=== PATIENT | male | born 1990 | race Caucasian/White ===

== ENCOUNTER 2018-01-02 12:59 | Inpatient (IN) | payer SELFPAY ==
[2018-01-02 14:25] VITALS: BMI 23.6
--- NOTE | 2018-01-02 15:36 | C.PDOC ---
History Of Present Illness 27-year-old male, PMHx includes substance abuse, presents to the emergency department with complaint suicidal ideation. Patient states he was seen by a doctor last week, who told him that he has a "problem with his liver, and may have cancer." Patient states that five days ago, he left his home and broke up with his girlfriend; Patient has been living on the streets. Last night, patient states he overdosed and tried to kill himself, but his friend who was with him, woke patient up with two doses of Narcan. Denies HI. Patient states he wants to kill himself, doesn't want to live anymore. Time Seen by Provider: 01/02/18 15:01 Chief Complaint (Nursing): Psychiatric Evaluation History Per: Patient History/Exam Limitations: no limitations Past Medical History Reviewed: Historical Data, Nursing Documentation, Vital Signs Vital Signs: Last Vital Signs Temp 98.4 F 01/02/18 23:38 Pulse 73 01/02/18 23:38 Resp 16 01/02/18 23:38 BP 111/73 01/02/18 23:38 Pulse Ox 98 01/02/18 23:38 - Medical History PMH: Anxiety, Bipolar Disorder, Depression Family History: States: No Known Family Hx - Social History Hx Alcohol Use: Yes Hx Substance Use: Yes - Immunization History Hx Tetanus Toxoid Vaccination: No Hx Influenza Vaccination: No Hx Pneumococcal Vaccination: No Review Of Systems Constitutional: Negative for: Fever Cardiovascular: Negative for: Chest Pain, Palpitations Respiratory: Negative for: Shortness of Breath Gastrointestinal: Negative for: Nausea, Vomiting, Abdominal Pain Psych: Positive for: Suicidal ideation Physical Exam - Physical Exam Appears: Non-toxic, No Acute Distress Skin: Warm, Dry, No Rash, No Jaundice Head: Normacephalic Neck: Normal ROM Cardiovascular: Rhythm Regular, No Murmur Respiratory: Normal Breath Sounds, No Accessory Muscle Use Extremity: Normal ROM, Capillary Refill (<2 seconds), No Deformity, No Swelling Neurological/Psych: Oriented x3, Normal Speech, Other (Calm and cooperative. 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 He remains quiet and cooperative in ED under 1:1 supervision. Disposition - Disposition Disposition Time: 00:29 Condition: STABLE - Clinical Impression Clinical Impression: Moderate major depression, single episode, Suicide attempt - Scribe Statement The provider has reviewed the documentation as recorded by the Scribe (Penny Donahue) All medical record entries made by the Scribe were at my direction and personally dictated by me. I have reviewed the chart and agree that the record accurately reflects my personal performance of the history, physical exam, medical decision making, and the department course for this patient. I have also personally directed, reviewed, and agree with the discharge instructions and disposition. Physician Patient Turnover Patient Signed Over To: Lucia Harper Handoff Comments: Pending [facility] screening
[2018-01-02 16:12] LABS: BASO % 0.2 % (0.0-2.0); EOS % 0.6 % (0.0-4.0); HEMOGLOBIN 13.9 g/dL (12.0-18.0); LYMPH # 3.4 K/uL (1.0-4.3); LYMPH % 42.9 % (20.0-40.0); MEAN CELL VOLUME 77.6 fL (80.0-94.0); MEAN CORPUSCULAR HEMOGLOBIN 27.8 pg (27.0-31.0); MEAN CORPUSCULAR HGB CONC 35.8 g/dL (33.0-37.0); MEAN PLATELET VOLUME 8.6 fL (7.2-11.7); MONO # 0.5 K/uL (0.0-0.8); MONO % 6.2 % (0.0-10.0); NEUT # 3.9 K/uL (1.8-7.0); NEUT % 50.1 % (50.0-75.0); NRBC % 0.1 % (0.0-2.0); RED CELL DISTRIBUTION WIDTH 14.5 % (11.5-14.5); WHITE BLOOD COUNT 7.8 K/uL (4.8-10.8)
[2018-01-02 16:20] LABS: ALB/GLOB RATIO 1.3 (1.0-2.1); ALBUMIN 4.2 g/dL (3.5-5.0); ALT/SGPT 77 U/L (21-72); AST/SGOT 48 U/L (17-59); BLOOD UREA NITROGEN 11 mg/dL (9-20); GFR AFRICAN-AMERICAN > 60; GFR NON-AFRICAN AMERICAN > 60
[2018-01-02 16:27] LABS: SQUAMOUS EPITHIAL < 1 /hpf (0-5); URINE BACTERIA RARE (<OCC); URINE BILIRUBIN NEGATIVE (NEGATIVE); URINE BLOOD NEGATIVE (NEGATIVE); URINE CLARITY Clear (Clear); URINE COLOR Yellow (YELLOW); URINE GLUCOSE (UA) NORMAL (Normal); URINE LEUKOCYTE ESTERASE NEG Leu/uL (Negative); URINE NITRATE NEGATIVE (NEGATIVE); URINE PROTEIN NEGATIVE (NEGATIVE)
[2018-01-02 16:48] LABS: BARBITURATES, UR NEGATIVE (NEGATIVE); PHENCYCLIDINE, UR NEGATIVE (NEGATIVE)
[2018-01-02 16:50] LABS: OPIATES, UR POSITIVE (NEGATIVE)
[2018-01-02 16:55] LABS: BENZODIAZEPINES, UR NEGATIVE (NEGATIVE)
--- NOTE | 2018-01-03 09:01 | RAD ---
Chest x-ray single frontal view History: Psychiatric evaluation. Comparison: None available. Findings: No focal infiltrate or effusion. Heart size within normal limits. Impression: No focal infiltrate or effusion.
[2018-01-03] MEDS ORDERED: Aluminum Hydroxide/Magnesium Hydroxide Susp (30 mL) PO PRN (09:59)
--- NOTE | 2018-01-03 13:20 | PCM.PSYCH ---
Initial Psychiatric Evaluation - Initial Psychiatric Evaluation Type of Admission: Voluntary Legal Status: Capacity History of Present Illness and Precipitating Events: Pt is a 27 year old male presenting to the ED due to SI with plan. Pt states he was brought to the ED after he attempted to end his life last night via overdose on heroin. Pt states a friend found him "black-out" and brought him to the hospital (today). Pt reports that he used a few grams of heroin intravenously last night in an attempt to kill himself and consumed about one fifth of vodka. Pt reports daily use of heroin and alcohol. but reports a period of soberity for 14 months. Pt reports feelings of guilt and hopelessness , adding that he was recently diagnosed with a liver disease, Hepatitis C. Pt states that his depression has been ongoing and states that he has a history of Bipolar, Depression and Anxiety, but has not been compliant with medications. Pt states he has past attempts via overdose. Pt reports he is not in communication with his family. Pt reports he is living with his girlfriend however after she learned of his disease she broke up with him because she does not want to contract it. 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 Pt reports feeling like a failure, advoiding family ( NOTE: pt refused to provide contact information for family for collateral contact. Pt denies legal issues. Pt reports his highest level of education is [employer]. Pt is alert and oriented x4. pt appears tearful and depressed. Pt eye contact is poor and his speech is low. Pt noted with swollen hand which he reports is due to IV use. Pt is poor historian on events and details. Current Medications: Active Medications Generic Name Dose Route Start Last Admin Trade Name Freq PRN Reason Stop Dose Admin Al Hydrox/Mg Hydrox/Simethicone 30 ml 01/03/18 09:59 Maalox 30 Ml PO TID PRN Indigestion / Heartburn Clonidine HCl 0.1 mg 01/03/18 09:59 Catapres PO Q8 PRN COWS Score More or Equal to 5 Loperamide HCl 2 mg 01/03/18 09:59 Imodium PO Q8 PRN Diarrhea Ondansetron HCl 4 mg 01/03/18 09:59 Zofran Tab PO Q8 PRN Nausea/Vomiting Pseudoephedrine HCl 60 mg 01/03/18 09:59 Sudafed Tab PO QID PRN Nasal/Sinus Congestion Past Psychiatric History - Past Psychiatric History Previous Treatment History: Inpatient Pertinent Medical Hx (Current Medical&Sleep Prob, Allergies): Allergies Allergy/AdvReac Type Severity Reaction Status Date / Time No Known Allergies Allergy Verified 01/02/18 14:23 No Known Home Med 12/03/17 Review of Systems - Review of Systems All systems: reviewed and no additional remarkable complaints except - Psychiatric Psychiatric: Change in Appetite, Depression, Difficulty Concentrating, Suicidal Ideation Mental Status Examination - Personal Presentation Personal Presentation: Looks stated age - Affect Affect: Constricted, Depressed - Motor Activity Motor Activity: Calm - Reliability in Providing Information Reliability in Providing Information: Poor, due to altered mood - Speech Speech: Organized - Mood Mood: Depressed, Anxious - Formal Thought Process Formal Thought Process: No Impairment - Obsessions/Compulsions Obsessions: No Compulsions: No - Cognitive Functions Orientation: Person, Place, Situation, Time Sensorium: Alert Attention/Concentration: Attentive Abstract Thinking: [place] Estimate of Intelligence: Below average Judgement: Imparied, as evidence by: Poor judgement, Imparied, as evidence by: Lack of insight into illness - Risk Risk: Suicidal, Withdrawal, Diminished functioning - Strength & Assets Inventory Strength & Assets Inventory: Family support DSM 5 DX - DSM 5 DSM 5 Diagnosis: Bipolar depressed severe without psy fx Opioid use severe Alcohol use severe - Recommended/Plan of Treatment Treatment Recommendations and Plan of Treatment: Bipolar depressed severe without psy fx Opioid use severe Alcohol use severe Methadone Librium prn Pt committed involuntarily, waiting for bed at [facility]
[2018-01-03] MEDS: Multiple Vitamins Tab PO SCH (15:41)
[2018-01-04] MEDS: Multiple Vitamins Tab PO SCH (09:40)
[2018-01-04 11:07] VITALS: RESP 15; TEMP 98.6; O2SAT 100
--- NOTE | 2018-01-04 12:54 | PCM.PYCHPN ---
Mental Status Examination - Cognitive Function Orientation: Person, Place, Situation, Time - Mood Mood: Depressed, Anxious - Affect Affect: Constricted, Depressed - Formal Thought Process Formal Thought Process: No Impairment - Homicidal Ideation Homicidal Ideation: No Goal/Treatment Plan - Goal/Treatment Plan Progress Toward Problem(s) and Goals/Treatment Plan: Bipolar depressed severe without psy fx Opioid use severe Alcohol use severe Methadone Librium prn Pt committed involuntarily, waiting for bed at [facility]
--- NOTE | 2018-01-04 13:13 | PCM.BM ---
Treatment Plan Problems - Problems identified on initial assessmt Substance Abuse Date Initiated: 01/04/18 Time Initiated: 13:11 Assessment reference: NA Status: Active Treatment assets and liabiliti Patient Assests: cooperative, educated, insightful, motivated, self-reliant, ADL independent, physically healthy, good support system, negotiates basic needs , cognitively intact, good interpersonal skills Patient Liabilities: live alone, financial problems, substance abuse - Milieu Protocol Maintain good personal hygiene: daily Encourage regular showers, daily Remind patient to perform daily oral care, daily Assist patient to perform ADL's Conduct patient checks and document Observation sheet: Q15 minutes Medication safety: Monitor for expected outcome, potential side effects: every shift, Assess barriers to learning: every shift, Assess readiness for medication education: every shift Milieu Narrative: Bipolar depressed severe without psy fx Opioid use severe Alcohol use severe Methadone Librium prn Pt committed involuntarily, waiting for bed at [facility] Discharge/Continuing Care - Treatment Team Participation Patient/Family/SO Statement: Bipolar depressed severe without psy fx Opioid use severe Alcohol use severe Methadone Librium prn Pt committed involuntarily, waiting for bed at [facility]
--- NOTE | 2018-01-04 13:39 | CARD ---
APPROVED REPORT EKG Measurement Heart [id number] <Conclusion> Normal sinus rhythm Normal ECG
[2018-01-04 16:41] VITALS: BP 122/94; PULSE 74
[2018-01-07] MEDS ORDERED: Pneumococcal 23-Valent Vaccine IM ONE (10:00)
== END 2018-01-04 21:43 | disposition home or self-care (01) | DRG 885 ==
LOC: C.ER 12:59 → UNDOADMIN 01-03 12:02 → C.5E 01-03 12:02 → C.9E 01-03 12:27 → C.5E 01-04 11:16
PROVIDERS: ADMIT Psychiatry & Neurology Psychiatry; ATTEND Psychiatry & Neurology Psychiatry
DX: F31.4 Bipolar disorder, current episode depressed, severe, without psychotic features (principal); R45.851 Suicidal ideations; F11.20 Opioid dependence, uncomplicated; F10.20 Alcohol dependence, uncomplicated; Y90.0 Blood alcohol level of less than 20 mg/100 ml